=== PATIENT | female | born 1985 | race African-American/Black ===

== ENCOUNTER 2019-10-05 08:57 | Emergency (ER) | payer SELFPAY ==
[~2019-10-05] VITALS: Ht 172.7 cm; Wt 98.4 kg
[2019-10-05] MEDS ORDERED: AZITHROMYCIN250 MG PO (09:18)
--- NOTE | 2019-10-05 09:51 | Emergency Department Note ---
History of Present Illnes History of Present Illness Chief Complaint: COVID PUI History of Present Illness This is a 34 year old female arrived to the ED with no complaints, states at her rehabilitation facility have tested positive for the coronavirus and she is concerned she may be infected. Patient states she does not want a Covid swab but just wants to be checked out. . Chief Complaint Comment PATIENT IN FROM HOME WITH NO COMPLAINTS; PATIENT STATES THAT HER THERMOMETER AT HOME SAID THAT SHE HAD A TEMP OF 99.8. PATIENT WITH NO COUGH OR SHORTNESS OF BREATH. PATIENT DENIES ANY COMPLAINTS BUT STATES THAT SHE IS HERE FOR A COVID TEST Historian: Patient Arrival Mode: Car Onset (how long ago): unknown Onset quality: unable to specify Progression: unable to specify Past Medical/Family History Physician Review I have reviewed the patient's past medical and family history. Any updates have been documented here. 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) Physically hurt or threatened: No Other Any Pre-Existing Lines (PICC,: No Review of Systems Review of Systems Constitutional: Reports no symptoms EENTM: Reports no symptoms Cardiovascular: Reports no symptoms Respiratory: Reports no symptoms Gastrointestinal: Reports no symptoms Genitourinary: Reports no symptoms Musculoskeletal: Reports no symptoms Integumentary: Reports no symptoms Neurological: Reports no symptoms Psychological: Reports no symptoms Endocrine: Reports no symptoms Hematological/Lymphatic: Reports no symptoms Physical Exam Related Data Allergies: Coded Allergies: No Known Allergies (Unverified , 10/05/19) Triage Vital Signs Vital Signs Date Time Temp Pulse Resp B/P (MAP) Pulse Ox O2 Delivery O2 Flow Rate FiO2 10/05/19 09:11 98.8 98 18 140/88 100 Room Air Vital signs reviewed: Yes Physical Exam CONSTITUTIONAL Constitutional: Present well-developed, Present well-nourished HENT HENT: Present normocephalic, Present atraumatic, Present oropharynx clear/moist, Present nose normal HENT L/R: Present left ext ear normal, Present right ext ear normal EYES Eyes: Reports PERRL, Reports conjunctivae normal NECK Neck: Present ROM normal PULMONARY Pulmonary: Present effort normal, Present breath sounds normal CARDIOVASCULAR Cardiovascular: Present regular rhythm, Present heart sounds normal, Present capillary refill normal, Present normal rate GASTROINTESTINAL Abdominal: Present soft, Present nontender, Present bowel sounds normal GENITOURINARY Genitourinary: Present exam deferred SKIN Skin: Present warm, Present dry MUSCULOSKELETAL Musculoskeletal: Present ROM normal NEUROLOGICAL Neurological: Present alert, Present oriented x 3, Present no gross motor or sensory deficits PSYCHOLOGICAL Psychological: Present mood/affect normal, Present judgement normal Assessment & Plan Medical Decision Making MDM 34-year-old well-appearing female arrives the ED to get examined, does not wish to have a [place] 19 swab. Patient informed that she may have a coronavirus secondary to exposure risk. Patient's oxygen saturation 100% on room air, she absolute no complaints of a stable for discharge home. Assessment & Plan Final Impression: (1) Exposure to COVID-19 virus Depart Disposition: HOME, SELF-CARE Last Vital Signs Date Time Temp Pulse Resp B/P (MAP) Pulse Ox O2 Delivery O2 Flow Rate FiO2 10/05/19 09:11 98.8 98 18 140/88 100 Room Air Home Meds Active Scripts Azithromycin ([id number]) 250 Mg Tablet, 1 PKG PO DIRECTED, #1 PKG 0 Refills Prov:AARON YE DO 10/05/19 AARON EY DO Oct 05, 2019 09:51
== END 2019-10-05 09:25 | disposition home or self-care (01) ==
LOC: ER 09:12
DX: Z03.818 Encounter for observation for suspected exposure to other biological agents ruled out (principal); F17.210 Nicotine dependence, cigarettes, uncomplicated
CPT/HCPCS: 99282